=== PATIENT | female | born 1995 | race Two or more races ===

== ENCOUNTER → 2022-01-02 | Outpatient (CLI) | payer OTHER ==
--- NOTE | 2022-01-02 14:56 | RAD ---
INDICATION: 27 year-old female presents for bilateral breast pain x2 years. No personal history of br east cancer. Family history of breast cancer in paternal aunt 50. TECHNIQUE: Full field craniocaudal and mediolateral oblique images of both breasts diagnostic images were obtained using digital technique with tomosynthesis and analyzed with computer-aided detection software. Targeted high resolution sonography of the region of concern was also performed. COMPARISON: None BREAST COMPOSITION: The breasts are extremely dense, which lowers the sensitivity of mammography. FINDINGS: MAMMOGRAM: No significant masses, suspicious calcifications, or other findings suggestive of malignancy. ULTRASOUND: Targeted bilateral breast ultrasound corresponding to the areas of pain reveals normal heterogenous a nd extremely dense areas of fibroglandular tissue. There are no suspicious masses or architectural di stortion. Visualized bilateral axillas reveal normal axillary nodes. IMPRESSION: No mammographic or sonographic evidence of malignancy in either breast RECOMMENDATION: Advise ongoing clinical management of bilateral breast pain. Patient to start annual screening mammography starting at the age of 40, unless otherwise indicated. BI-RADS 1: Negative Electronically signed by: Dallin Cuevas DO (01/02/2022 2:54 PM) [id number]
== END ==
LOC: MAMMO 13:46
PROVIDERS: ATTEND Nurse Practitioner Family
DX: N64.4 Mastodynia (principal)
CPT/HCPCS: 76641; 77066; G0279; 77062